=== PATIENT | female | born 1985 | race Caucasian/White ===

== ENCOUNTER 2017-11-12 10:02 | Inpatient (IN) | payer OTHER ==
[2017-11-12] MEDS ORDERED: FENTAnyl 50 MCG/ML VIAL ×2 (12:21→13:42)
[2017-11-12] MEDS ORDERED: PROVENTIL HFA 6.7GM INHALER (12:28)
[2017-11-12] MEDS: SOD CHLORIDE 0.9% 1,000 ML IV ×3 (12:30→23:31)
[2017-11-12] MEDS: CEFAZOLIN 2 GM/50 ML (PMX) 50 ML IVPB ×2 (12:31→18:33)
[2017-11-12] MEDS ORDERED: ROPIVACAINE 0.5 % 30 ML VIAL (12:34)
[2017-11-12] MEDS ORDERED: CEFAZOLIN 1 GM INJ (12:46)
[2017-11-12] MEDS ORDERED: SUGAMMADEX SODIUM 200 MG/2 ML VIAL IV (12:46)
[2017-11-12] MEDS ORDERED: ROCURONIUM 50 MG INJ (12:46)
[2017-11-12] MEDS ORDERED: LIDOCAINE 100 MG SYRINGE (12:46)
[2017-11-12] MEDS ORDERED: SUCCINYLCHOLINE CHLORIDE 100 MG/5 ML SYG IV (12:46)
[2017-11-12] MEDS ORDERED: PROPOFOL 20 ML (12:46)
[2017-11-12] MEDS: POLYMYXIN/BACITRACIN 1L IRRIG (13:05)
[2017-11-12] MEDS: BUPIVACAINE 0.25% (MPF) 30 ML INJ (13:27)
[2017-11-12] MEDS ORDERED: MEPERIDINE 25 MG INJ IV (14:00)
[2017-11-12] MEDS ORDERED: DIPHENHYDRAMINE 50 MG INJ IV (14:00)
[2017-11-12] MEDS ORDERED: LABETALOL HCL 20MG INJ IV (14:00)
[2017-11-12] MEDS ORDERED: IBUPROFEN 600 MG TAB PO (14:00)
[2017-11-12] MEDS ORDERED: ALBUTEROL 0.083% (NEB) 2.5 MG/3 ML AMP HHN (14:00)
[2017-11-12] MEDS ORDERED: FENTAnyl 50 MCG/ML VIAL IV (14:00)
[2017-11-12] MEDS ORDERED: HYDROmorphONE (0.2 MG/ML) 10ML SYG IV ×2 (14:00)
[2017-11-12] MEDS: FENTAnyl 50 MCG/ML VIAL IV (14:02)
[2017-11-12] MEDS: ONDANSETRON 4 MG INJ IV ×2 (14:03→20:38)
[2017-11-12] MEDS: HYDROmorphONE (0.2 MG/ML) 10ML SYG IV (14:18)
[2017-11-12 14:20] LABS: ADD MAN DIFF? NO
[2017-11-12 14:22] LABS: BASOPHIL # 0.1 10^3/ul (0.0-0.1); BASOPHILS % 0.3 % (0.0-2.0); EOSINOPHILS # 0.1 10^3/ul (0.0-0.5); EOSINOPHILS % 0.4 % (0.0-7.0); HEMATOCRIT 42.6 % (37.0-47.0); LYMPHOCYTES # 4.3 10^3/ul (0.8-2.9); MEAN CORPUSCULAR HEMOGLOBIN 29.1 pg (29.0-33.0); MEAN CORPUSCULAR HGB CONC 32.9 g/dl (32.0-37.0); MEAN CORPUSCULAR VOLUME 88.6 fl (82.0-101.0); MEAN PLATELET VOLUME 10.7 fl (7.4-10.4); MONOCYTE # 0.8 10^3/ul (0.3-0.9); MONOCYTES % 4.8 % (0.0-11.0); NEUTROPHIL # 11.7 10^3/ul (1.6-7.5); NEUTROPHILS % 69.1 % (39.0-77.0); PLATELET COUNT 248 10^3/UL (140-415); RED BLOOD COUNT 4.81 10^6/ul (4.20-5.40); RED CELL DISTRIBUTION WIDTH 13.5 % (11.5-14.5)
[2017-11-12 14:28] LABS: HOLD TRANSMISSIONS 1
[2017-11-12 14:39] LABS: ALANINE AMINOTRANSFERASE 36 IU/L (13-69); ALBUMIN 3.8 g/dl (3.3-4.9); ALBUMIN/GLOBULIN RATIO 1.15; ALKALINE PHOSPHATASE 65 IU/L (42-121); ANION GAP 15 (8-16); ASPARTATE AMINO TRANSFERASE 24 IU/L (15-46); BILIRUBIN,INDIRECT 0.2 mg/dl (0-1.1); BILIRUBIN,TOTAL 0.2 mg/dl (0.2-1.3); CARBON DIOXIDE 26 mmol/L (21-31); CHLORIDE 106 mmol/L (97-110); GLUCOSE 190 mg/dl (70-220); TOTAL PROTEIN 7.1 g/dl (6.1-8.1)
[2017-11-12 14:40] LABS: BLOOD UREA NITROGEN 14 mg/dl (7-20); CALCIUM 8.4 mg/dl (8.4-10.2); POTASSIUM 3.7 mmol/L (3.5-5.1); SODIUM 143 mmol/L (135-144)
[2017-11-12] MEDS ORDERED: GLUCAGON 1 MG INJ IM (15:00)
[2017-11-12] MEDS ORDERED: DEXTROSE 50% 50 ML SYRINGE IV ×2 (15:00)
[2017-11-12] MEDS ORDERED: GLUCOSE GEL 15 GRAM TUBE PO ×2 (15:00)
[2017-11-12] MEDS ORDERED: GLUCOSE GEL 15 GRAM TUBE BUCCAL (15:00)
[2017-11-12 15:12] LABS: HEMOGLOBIN A1C 6.5 % (0-5.9)
[2017-11-12] MEDS: INSULIN ASPART [NOVOLOG] 3 ML PEN SC ×2 (17:55→20:35)
[2017-11-12] MEDS: metFORMIN 500 MG TAB PO (17:55)
[2017-11-12] MEDS: METOCLOPRAMIDE 10 MG INJ IV (18:38)
[2017-11-12] MEDS: HYDROmorphONE 0.5 MG/0.5 ML SYG IV (20:38)
[2017-11-13] MEDS: HYDROCODONE/APAP (5/325) TAB PO ×2 (00:10→07:51)
[2017-11-13] MEDS: SOD CHLORIDE 0.9% 1,000 ML IV ×3 (00:10→20:00)
[2017-11-13] MEDS: ACCU-CHEK XX (02:30)
[2017-11-13] MEDS: CEFAZOLIN 2 GM/50 ML (PMX) 50 ML IVPB ×2 (02:30→10:29)
[2017-11-13 05:34] LABS: ADD MAN DIFF? NO
[2017-11-13 05:42] LABS: WHITE BLOOD COUNT 15.5 10^3/ul (4.8-10.8)
[2017-11-13 05:42] LABS: BASOPHILS % 0.3 % (0.0-2.0); EOSINOPHILS % 0.1 % (0.0-7.0); HEMATOCRIT 40.4 % (37.0-47.0); HEMOGLOBIN 13.2 g/dl (12.0-16.0); LYMPHOCYTES # 2.4 10^3/ul (0.8-2.9); LYMPHOCYTES % 15.8 % (15.0-51.0); MEAN CORPUSCULAR HEMOGLOBIN 28.7 pg (29.0-33.0); MEAN CORPUSCULAR HGB CONC 32.7 g/dl (32.0-37.0); MEAN CORPUSCULAR VOLUME 87.8 fl (82.0-101.0); MONOCYTE # 1.1 10^3/ul (0.3-0.9); MONOCYTES % 6.9 % (0.0-11.0); NEUTROPHIL # 11.8 10^3/ul (1.6-7.5); NEUTROPHILS % 76.6 % (39.0-77.0); PLATELET COUNT 233 10^3/UL (140-415); RED CELL DISTRIBUTION WIDTH 13.6 % (11.5-14.5)
[2017-11-13 06:09] LABS: ALANINE AMINOTRANSFERASE 26 IU/L (13-69); ALBUMIN 3.7 g/dl (3.3-4.9); ALBUMIN/GLOBULIN RATIO 1.15; ALKALINE PHOSPHATASE 59 IU/L (42-121); ANION GAP 16 (8-16); ASPARTATE AMINO TRANSFERASE 20 IU/L (15-46); BILIRUBIN,INDIRECT 1.2 mg/dl (0-1.1); BILIRUBIN,TOTAL 1.2 mg/dl (0.2-1.3); BLOOD UREA NITROGEN 12 mg/dl (7-20); CALCIUM 8.7 mg/dl (8.4-10.2); CARBON DIOXIDE 24 mmol/L (21-31); CHLORIDE 105 mmol/L (97-110); CREATININE 0.51 mg/dl (0.44-1.00); GLUCOSE 149 mg/dl (70-220); POTASSIUM 3.6 mmol/L (3.5-5.1); SODIUM 141 mmol/L (135-144); TOTAL PROTEIN 6.9 g/dl (6.1-8.1)
[2017-11-13] MEDS: ONDANSETRON 4 MG INJ IV (07:53)
[2017-11-13] MEDS: EMPAGLIFLOZIN 10 MG TABLET PO (09:22)
[2017-11-13] MEDS: LISINOPRIL 20 MG TAB PO (09:23)
[2017-11-13] MEDS: LINAGLIPTIN 5 MG TABLET PO (09:23)
[2017-11-13] MEDS: INSULIN ASPART [NOVOLOG] 3 ML PEN SC ×5 (09:27→20:36)
[2017-11-13] MEDS: metFORMIN 500 MG TAB PO ×3 (09:31→18:31)
[2017-11-13] MEDS: HYDROCODONE/APAP (10/325) TAB PO ×2 (14:17→14:19)
[2017-11-13 16:03] LABS: CHOL/HDL RATIO 3.3 RATIO; HDL CHOLESTEROL 40 mg/dl (34-82); LDL CHOLESTEROL,CALCULATED 59 mg/dl; TRIGLYCERIDES 176 mg/dl (0-149)
[2017-11-13 16:03] LABS: CHOLESTEROL 134 mg/dl (100-200)
[2017-11-13] MEDS: SOD CHLORIDE 0.9% 100 ML (18:29)
[2017-11-13] MEDS: IOHEXOL 100 ML (18:30)
[2017-11-13 18:47] LABS: CREATINE KINASE 61 IU/L (23-200)
[2017-11-13 18:55] LABS: CK INDEX 0.4
[2017-11-13 18:57] LABS: CK-MB < 0.22 ng/ml (0.0-2.4); TROPONIN-I < 0.012 ng/ml (0.00-0.12)
[2017-11-13] MEDS ORDERED: RIVAROXABAN 15 MG TABLET PO (19:30)
[2017-11-13 19:40] LABS: AADO2 Arterial 82.1 mmHg (7.0-24.0); Allen Test ACCEPTAB; Arterial Base Excess -0.7 mmol/L (-3.0-3); Arterial Blood Gas Oxygen Sat 96.1 mmHG (95.0-98.0); Arterial COHb 0.9 % (0.0-3.0); Arterial Fraction of Oxyhgb 94.9 % (93.0-99.0); Arterial HCO3 22.8 mmol/L (22.0-26.0); Arterial MetHb 0.3 % (0.0-1.5); Arterial Total Hemglobin 14.8 g/dl (12.0-18.0); Arterial pCO2 34.2 mmhg (35-45); MODE NASAL CANNULA; Site Right Radial
[2017-11-13] MEDS: APIXABAN 5 MG TABLET PO (20:24)
[2017-11-13] MEDS: METOPROLOL 25 MG TAB PO (20:24)
[2017-11-13 20:26] LABS: INR 1.22; PROTIME 15.6 Sec (11.9-14.9); PT RATIO 1.2
[2017-11-14 01:28] LABS: TROPONIN-I < 0.012 ng/ml (0.00-0.12)
[2017-11-14] MEDS: ACCU-CHEK XX (02:00)
[2017-11-14] MEDS: SOD CHLORIDE 0.9% 1,000 ML IV ×2 (05:37→17:40)
[2017-11-14 07:27] LABS: ADD MAN DIFF? NO
[2017-11-14 07:28] LABS: BASOPHIL # 0.1 10^3/ul (0.0-0.1); BASOPHILS % 0.3 % (0.0-2.0); EOSINOPHILS % 0.1 % (0.0-7.0); HEMATOCRIT 42.4 % (37.0-47.0); HEMOGLOBIN 13.7 g/dl (12.0-16.0); LYMPHOCYTES # 2.5 10^3/ul (0.8-2.9); LYMPHOCYTES % 13.2 % (15.0-51.0); MEAN CORPUSCULAR HEMOGLOBIN 28.9 pg (29.0-33.0); MEAN CORPUSCULAR HGB CONC 32.3 g/dl (32.0-37.0); MEAN CORPUSCULAR VOLUME 89.5 fl (82.0-101.0); MEAN PLATELET VOLUME 10.9 fl (7.4-10.4); MONOCYTE # 1.2 10^3/ul (0.3-0.9); MONOCYTES % 6.3 % (0.0-11.0); NEUTROPHIL # 15.1 10^3/ul (1.6-7.5); NEUTROPHILS % 79.6 % (39.0-77.0); PLATELET COUNT 238 10^3/UL (140-415); RED BLOOD COUNT 4.74 10^6/ul (4.20-5.40); RED CELL DISTRIBUTION WIDTH 13.9 % (11.5-14.5)
[2017-11-14 07:54] LABS: ANION GAP 21 (8-16); BLOOD UREA NITROGEN 10 mg/dl (7-20); CARBON DIOXIDE 18 mmol/L (21-31); CHLORIDE 108 mmol/L (97-110); CREATININE 0.59 mg/dl (0.44-1.00); GLUCOSE 116 mg/dl (70-220); SODIUM 143 mmol/L (135-144)
[2017-11-14 08:05] LABS: TROPONIN-I < 0.012 ng/ml (0.00-0.12)
[2017-11-14] MEDS: LINAGLIPTIN 5 MG TABLET PO (08:39)
[2017-11-14] MEDS: EMPAGLIFLOZIN 10 MG TABLET PO (08:39)
[2017-11-14] MEDS: APIXABAN 5 MG TABLET PO ×2 (08:39→21:41)
[2017-11-14] MEDS: metFORMIN 500 MG TAB PO ×2 (08:40→17:39)
[2017-11-14] MEDS: LISINOPRIL 20 MG TAB PO (08:40)
[2017-11-14] MEDS: METOPROLOL 25 MG TAB PO ×2 (08:41→21:41)
[2017-11-14] MEDS: INSULIN ASPART [NOVOLOG] 3 ML PEN SC ×4 (08:43→21:00)
[2017-11-14 13:07] LABS: TROPONIN-I < 0.012 ng/ml (0.00-0.12)
[2017-11-15] MEDS: ACCU-CHEK XX (02:00)
[2017-11-15 07:42] LABS: ADD MAN DIFF? NO
[2017-11-15 07:49] LABS: BASOPHIL # 0.1 10^3/ul (0.0-0.1); BASOPHILS % 0.4 % (0.0-2.0); EOSINOPHILS # 0.2 10^3/ul (0.0-0.5); EOSINOPHILS % 1.4 % (0.0-7.0); HEMATOCRIT 41.9 % (37.0-47.0); HEMOGLOBIN 13.6 g/dl (12.0-16.0); LYMPHOCYTES # 2.9 10^3/ul (0.8-2.9); MEAN CORPUSCULAR HEMOGLOBIN 28.9 pg (29.0-33.0); MEAN CORPUSCULAR HGB CONC 32.5 g/dl (32.0-37.0); MEAN PLATELET VOLUME 11.1 fl (7.4-10.4); MONOCYTE # 1.2 10^3/ul (0.3-0.9); MONOCYTES % 7.4 % (0.0-11.0); NEUTROPHIL # 11.5 10^3/ul (1.6-7.5); NEUTROPHILS % 72.4 % (39.0-77.0); PLATELET COUNT 261 10^3/UL (140-415); RED BLOOD COUNT 4.71 10^6/ul (4.20-5.40); RED CELL DISTRIBUTION WIDTH 13.8 % (11.5-14.5)
[2017-11-15 07:49] LABS: WHITE BLOOD COUNT 15.9 10^3/ul (4.8-10.8)
[2017-11-15] MEDS: INSULIN ASPART [NOVOLOG] 3 ML PEN SC ×4 (08:00→21:00)
[2017-11-15 08:34] LABS: ANION GAP 21 (8-16); BLOOD UREA NITROGEN 14 mg/dl (7-20); CALCIUM 8.9 mg/dl (8.4-10.2); CARBON DIOXIDE 18 mmol/L (21-31); CHLORIDE 107 mmol/L (97-110); CREATININE 0.59 mg/dl (0.44-1.00); GLUCOSE 117 mg/dl (70-220); POTASSIUM 3.9 mmol/L (3.5-5.1); SODIUM 142 mmol/L (135-144)
[2017-11-15] MEDS: LINAGLIPTIN 5 MG TABLET PO (09:05)
[2017-11-15] MEDS: EMPAGLIFLOZIN 10 MG TABLET PO (09:06)
[2017-11-15] MEDS: LISINOPRIL 20 MG TAB PO (09:07)
[2017-11-15] MEDS: METOPROLOL 25 MG TAB PO ×2 (09:07→21:09)
[2017-11-15] MEDS: APIXABAN 5 MG TABLET PO ×2 (09:07→21:09)
[2017-11-15] MEDS: SOD CHLORIDE 0.9% 1,000 ML IV (09:08)
[2017-11-15] MEDS: metFORMIN 500 MG TAB PO ×2 (09:15→17:23)
[2017-11-15] MEDS ORDERED: DIPHENOXYLATE/ATROPINE TAB PO (13:30)
[2017-11-16] MEDS: SOD CHLORIDE 0.9% 1,000 ML IV ×2 (01:51→17:35)
[2017-11-16] MEDS: ACCU-CHEK XX (02:00)
[2017-11-16] MEDS: INSULIN ASPART [NOVOLOG] 3 ML PEN SC ×4 (08:00→20:51)
[2017-11-16 08:31] LABS: ADD MAN DIFF? NO
[2017-11-16] MEDS: EMPAGLIFLOZIN 10 MG TABLET PO (08:32)
[2017-11-16] MEDS: LISINOPRIL 20 MG TAB PO (08:32)
[2017-11-16] MEDS: LINAGLIPTIN 5 MG TABLET PO (08:33)
[2017-11-16] MEDS: METOPROLOL 25 MG TAB PO ×2 (08:33→20:51)
[2017-11-16] MEDS: metFORMIN 500 MG TAB PO ×2 (08:33→17:34)
[2017-11-16] MEDS: APIXABAN 5 MG TABLET PO ×2 (08:33→20:50)
[2017-11-16 08:47] LABS: WHITE BLOOD COUNT 12.9 10^3/ul (4.8-10.8)
[2017-11-16 08:47] LABS: BASOPHIL # 0.1 10^3/ul (0.0-0.1); BASOPHILS % 0.5 % (0.0-2.0); EOSINOPHILS # 0.3 10^3/ul (0.0-0.5); EOSINOPHILS % 2.6 % (0.0-7.0); HEMATOCRIT 43.1 % (37.0-47.0); HEMOGLOBIN 14.1 g/dl (12.0-16.0); LYMPHOCYTES # 2.5 10^3/ul (0.8-2.9); LYMPHOCYTES % 19.5 % (15.0-51.0); MEAN CORPUSCULAR HEMOGLOBIN 29.1 pg (29.0-33.0); MEAN CORPUSCULAR HGB CONC 32.7 g/dl (32.0-37.0); MEAN PLATELET VOLUME 10.9 fl (7.4-10.4); MONOCYTE # 0.8 10^3/ul (0.3-0.9); MONOCYTES % 6.4 % (0.0-11.0); NEUTROPHIL # 9.1 10^3/ul (1.6-7.5); NEUTROPHILS % 70.8 % (39.0-77.0); PLATELET COUNT 292 10^3/UL (140-415); RED BLOOD COUNT 4.84 10^6/ul (4.20-5.40); RED CELL DISTRIBUTION WIDTH 13.6 % (11.5-14.5)
[2017-11-16 09:07] LABS: INR 1.42; PROTIME 17.6 Sec (11.9-14.9); PT RATIO 1.4
[2017-11-16 09:08] LABS: PARTIAL THROMBOPLASTIN TIME 43.9 Sec (25.0-35.0)
[2017-11-16] MEDS: metroNIDAZOLE 500 MG TAB PO ×2 (17:34→23:20)
[2017-11-17] MEDS: ACCU-CHEK XX (01:44)
[2017-11-17] MEDS: metroNIDAZOLE 500 MG TAB PO ×3 (05:40→17:39)
[2017-11-17 06:59] LABS: ADD MAN DIFF? NO
[2017-11-17 07:01] LABS: WHITE BLOOD COUNT 12.2 10^3/ul (4.8-10.8)
[2017-11-17 07:01] LABS: BASOPHIL # 0.1 10^3/ul (0.0-0.1); BASOPHILS % 0.5 % (0.0-2.0); EOSINOPHILS # 0.4 10^3/ul (0.0-0.5); EOSINOPHILS % 2.9 % (0.0-7.0); HEMATOCRIT 44.4 % (37.0-47.0); HEMOGLOBIN 14.5 g/dl (12.0-16.0); LYMPHOCYTES # 2.2 10^3/ul (0.8-2.9); LYMPHOCYTES % 17.8 % (15.0-51.0); MEAN CORPUSCULAR HEMOGLOBIN 28.5 pg (29.0-33.0); MEAN CORPUSCULAR HGB CONC 32.7 g/dl (32.0-37.0); MEAN CORPUSCULAR VOLUME 87.4 fl (82.0-101.0); MEAN PLATELET VOLUME 10.5 fl (7.4-10.4); MONOCYTE # 0.8 10^3/ul (0.3-0.9); MONOCYTES % 6.5 % (0.0-11.0); NEUTROPHIL # 8.8 10^3/ul (1.6-7.5); NEUTROPHILS % 71.9 % (39.0-77.0); PLATELET COUNT 365 10^3/UL (140-415); RED BLOOD COUNT 5.08 10^6/ul (4.20-5.40); RED CELL DISTRIBUTION WIDTH 13.3 % (11.5-14.5)
[2017-11-17] MEDS: INSULIN ASPART [NOVOLOG] 3 ML PEN SC ×4 (08:00→20:43)
[2017-11-17] MEDS: LISINOPRIL 20 MG TAB PO (08:45)
[2017-11-17] MEDS: METOPROLOL 25 MG TAB PO (08:46)
[2017-11-17] MEDS: LINAGLIPTIN 5 MG TABLET PO (08:46)
[2017-11-17] MEDS: APIXABAN 5 MG TABLET PO ×2 (08:46→20:43)
[2017-11-17] MEDS: EMPAGLIFLOZIN 10 MG TABLET PO (08:47)
[2017-11-17] MEDS: metFORMIN 500 MG TAB PO ×2 (08:53→17:39)
[2017-11-17] MEDS: SOD CHLORIDE 0.9% 1,000 ML IV (11:11)
[2017-11-17] MEDS: METOPROLOL 50 MG TAB PO (20:43)
[2017-11-18] MEDS: metroNIDAZOLE 500 MG TAB PO ×3 (01:16→11:41)
[2017-11-18] MEDS: ACCU-CHEK XX (02:00)
[2017-11-18] MEDS: SOD CHLORIDE 0.9% 1,000 ML IV ×2 (03:51→20:31)
[2017-11-18] MEDS: ONDANSETRON 4 MG INJ IV (06:31)
[2017-11-18 07:08] LABS: ADD MAN DIFF? NO
[2017-11-18 07:13] LABS: WHITE BLOOD COUNT 13.3 10^3/ul (4.8-10.8)
[2017-11-18 07:13] LABS: BASOPHIL # 0.1 10^3/ul (0.0-0.1); BASOPHILS % 0.5 % (0.0-2.0); EOSINOPHILS # 0.3 10^3/ul (0.0-0.5); EOSINOPHILS % 2.6 % (0.0-7.0); HEMATOCRIT 45.8 % (37.0-47.0); HEMOGLOBIN 15.1 g/dl (12.0-16.0); LYMPHOCYTES # 2.2 10^3/ul (0.8-2.9); LYMPHOCYTES % 16.4 % (15.0-51.0); MEAN CORPUSCULAR HEMOGLOBIN 29.2 pg (29.0-33.0); MEAN CORPUSCULAR VOLUME 88.4 fl (82.0-101.0); MEAN PLATELET VOLUME 10.3 fl (7.4-10.4); MONOCYTE # 0.9 10^3/ul (0.3-0.9); MONOCYTES % 6.4 % (0.0-11.0); NEUTROPHIL # 9.8 10^3/ul (1.6-7.5); NEUTROPHILS % 73.7 % (39.0-77.0); PLATELET COUNT 385 10^3/UL (140-415); RED BLOOD COUNT 5.18 10^6/ul (4.20-5.40); RED CELL DISTRIBUTION WIDTH 13.3 % (11.5-14.5)
[2017-11-18 07:42] LABS: ANION GAP 26 (8-16); BLOOD UREA NITROGEN 15 mg/dl (7-20); CALCIUM 9.3 mg/dl (8.4-10.2); CARBON DIOXIDE 14 mmol/L (21-31); CHLORIDE 107 mmol/L (97-110); GLUCOSE 131 mg/dl (70-220); POTASSIUM 4.1 mmol/L (3.5-5.1); SODIUM 143 mmol/L (135-144)
[2017-11-18] MEDS: INSULIN ASPART [NOVOLOG] 3 ML PEN SC ×4 (08:00→21:00)
[2017-11-18] MEDS: LISINOPRIL 10 MG TAB PO (08:44)
[2017-11-18] MEDS: METOPROLOL 50 MG TAB PO ×2 (08:44→21:48)
[2017-11-18] MEDS: EMPAGLIFLOZIN 10 MG TABLET PO (08:45)
[2017-11-18] MEDS: LINAGLIPTIN 5 MG TABLET PO (08:45)
[2017-11-18] MEDS: APIXABAN 5 MG TABLET PO ×2 (08:45→21:49)
[2017-11-18] MEDS: metFORMIN 500 MG TAB PO ×2 (08:54→17:24)
[2017-11-18] MEDS: Metronidazole 500 MG in NS 100 ML IVPB ×2 (17:23→23:41)
[2017-11-18] MEDS: VANCOMYCIN HCL 250 MG/5ML POSYG PO ×2 (17:24→23:41)
[2017-11-19] MEDS: ACCU-CHEK XX (02:00)
[2017-11-19] MEDS: VANCOMYCIN HCL 250 MG/5ML POSYG PO ×3 (06:35→17:52)
[2017-11-19] MEDS: Metronidazole 500 MG in NS 100 ML IVPB ×3 (06:35→21:03)
[2017-11-19] MEDS: INSULIN ASPART [NOVOLOG] 3 ML PEN SC ×4 (08:00→20:54)
[2017-11-19] MEDS: EMPAGLIFLOZIN 10 MG TABLET PO (08:33)
[2017-11-19] MEDS: LISINOPRIL 10 MG TAB PO (08:33)
[2017-11-19] MEDS: metFORMIN 500 MG TAB PO ×2 (08:33→17:53)
[2017-11-19] MEDS: LINAGLIPTIN 5 MG TABLET PO (08:34)
[2017-11-19] MEDS: APIXABAN 5 MG TABLET PO ×2 (08:34→20:54)
[2017-11-19] MEDS: METOPROLOL 50 MG TAB PO ×2 (08:34→20:54)
[2017-11-19 10:01] LABS: ADD MAN DIFF? NO
[2017-11-19 10:07] LABS: WHITE BLOOD COUNT 14.5 10^3/ul (4.8-10.8)
[2017-11-19 10:07] LABS: BASOPHIL # 0.1 10^3/ul (0.0-0.1); BASOPHILS % 0.6 % (0.0-2.0); EOSINOPHILS # 0.2 10^3/ul (0.0-0.5); EOSINOPHILS % 1.7 % (0.0-7.0); HEMATOCRIT 46.7 % (37.0-47.0); HEMOGLOBIN 15.1 g/dl (12.0-16.0); LYMPHOCYTES # 2.1 10^3/ul (0.8-2.9); LYMPHOCYTES % 14.7 % (15.0-51.0); MEAN CORPUSCULAR HEMOGLOBIN 28.5 pg (29.0-33.0); MEAN CORPUSCULAR HGB CONC 32.3 g/dl (32.0-37.0); MEAN CORPUSCULAR VOLUME 88.3 fl (82.0-101.0); MEAN PLATELET VOLUME 10.4 fl (7.4-10.4); MONOCYTE # 0.8 10^3/ul (0.3-0.9); MONOCYTES % 5.5 % (0.0-11.0); NEUTROPHIL # 11.2 10^3/ul (1.6-7.5); NEUTROPHILS % 77.1 % (39.0-77.0); PLATELET COUNT 377 10^3/UL (140-415); RED BLOOD COUNT 5.29 10^6/ul (4.20-5.40); RED CELL DISTRIBUTION WIDTH 13.3 % (11.5-14.5)
[2017-11-19 10:23] LABS: ALANINE AMINOTRANSFERASE 39 IU/L (13-69); ALBUMIN 4.4 g/dl (3.3-4.9); ALKALINE PHOSPHATASE 85 IU/L (42-121); ANION GAP 27 (8-16); ASPARTATE AMINO TRANSFERASE 35 IU/L (15-46); BILIRUBIN,INDIRECT 0.3 mg/dl (0-1.1); BILIRUBIN,TOTAL 0.3 mg/dl (0.2-1.3); BLOOD UREA NITROGEN 14 mg/dl (7-20); CALCIUM 9.1 mg/dl (8.4-10.2); CARBON DIOXIDE 12 mmol/L (21-31); CHLORIDE 107 mmol/L (97-110); CREATININE 0.65 mg/dl (0.44-1.00); GLUCOSE 116 mg/dl (70-220); POTASSIUM 4.1 mmol/L (3.5-5.1); SODIUM 142 mmol/L (135-144); TOTAL PROTEIN 8.4 g/dl (6.1-8.1)
[2017-11-19] MEDS: SOD CHLORIDE 0.9% 1,000 ML IV (13:11)
[2017-11-19] MEDS: ONDANSETRON 4 MG INJ IV (18:40)
[2017-11-20] MEDS: VANCOMYCIN HCL 250 MG/5ML POSYG PO ×5 (00:32→23:13)
[2017-11-20] MEDS: ONDANSETRON 4 MG INJ IV ×4 (00:32→21:13)
[2017-11-20] MEDS: ACCU-CHEK XX (01:52)
[2017-11-20] MEDS: SOD CHLORIDE 0.9% 1,000 ML IV ×2 (05:08→22:31)
[2017-11-20] MEDS: Metronidazole 500 MG in NS 100 ML IVPB ×3 (05:09→21:14)
[2017-11-20 07:43] LABS: ADD MAN DIFF? NO
[2017-11-20] MEDS: INSULIN ASPART [NOVOLOG] 3 ML PEN SC ×4 (07:47→21:00)
[2017-11-20 07:48] LABS: BASOPHIL # 0.1 10^3/ul (0.0-0.1); BASOPHILS % 0.5 % (0.0-2.0); EOSINOPHILS # 0.2 10^3/ul (0.0-0.5); EOSINOPHILS % 1.2 % (0.0-7.0); HEMATOCRIT 46.6 % (37.0-47.0); HEMOGLOBIN 15.1 g/dl (12.0-16.0); LYMPHOCYTES # 2.7 10^3/ul (0.8-2.9); LYMPHOCYTES % 15.1 % (15.0-51.0); MEAN CORPUSCULAR HEMOGLOBIN 28.9 pg (29.0-33.0); MEAN CORPUSCULAR HGB CONC 32.4 g/dl (32.0-37.0); MEAN CORPUSCULAR VOLUME 89.1 fl (82.0-101.0); MEAN PLATELET VOLUME 10.5 fl (7.4-10.4); MONOCYTE # 1.1 10^3/ul (0.3-0.9); MONOCYTES % 6.4 % (0.0-11.0); NEUTROPHIL # 13.4 10^3/ul (1.6-7.5); NEUTROPHILS % 76.3 % (39.0-77.0); PLATELET COUNT 381 10^3/UL (140-415); RED BLOOD COUNT 5.23 10^6/ul (4.20-5.40); RED CELL DISTRIBUTION WIDTH 13.2 % (11.5-14.5)
[2017-11-20 07:48] LABS: WHITE BLOOD COUNT 17.6 10^3/ul (4.8-10.8)
[2017-11-20 08:05] LABS: ANION GAP 27 (8-16); BLOOD UREA NITROGEN 14 mg/dl (7-20); CALCIUM 8.9 mg/dl (8.4-10.2); CHLORIDE 107 mmol/L (97-110); CREATININE 0.64 mg/dl (0.44-1.00); GLUCOSE 120 mg/dl (70-220); SODIUM 139 mmol/L (135-144)
[2017-11-20 08:10] LABS: CARBON DIOXIDE 9 mmol/L (21-31)
[2017-11-20] MEDS: metFORMIN 500 MG TAB PO ×2 (08:31→17:26)
[2017-11-20] MEDS: LINAGLIPTIN 5 MG TABLET PO (08:32)
[2017-11-20] MEDS: EMPAGLIFLOZIN 10 MG TABLET PO (08:32)
[2017-11-20] MEDS: LISINOPRIL 10 MG TAB PO (08:33)
[2017-11-20] MEDS: APIXABAN 5 MG TABLET PO (08:33)
[2017-11-20] MEDS: METOPROLOL 50 MG TAB PO ×2 (08:34→21:14)
[2017-11-20] MEDS: SOD CHLORIDE 0.9% 500 ML IV (18:30)
[2017-11-21] MEDS: ACCU-CHEK XX (02:00)
[2017-11-21] MEDS: Metronidazole 500 MG in NS 100 ML IVPB ×2 (05:18→15:04)
[2017-11-21] MEDS: VANCOMYCIN HCL 250 MG/5ML POSYG PO ×2 (05:18→11:56)
[2017-11-21] MEDS: INSULIN ASPART [NOVOLOG] 3 ML PEN SC ×4 (07:37→21:00)
[2017-11-21 08:47] LABS: ADD MAN DIFF? NO
[2017-11-21] MEDS: metFORMIN 500 MG TAB PO ×2 (08:49→17:27)
[2017-11-21] MEDS: APIXABAN 5 MG TABLET PO ×2 (08:50→22:27)
[2017-11-21] MEDS: LINAGLIPTIN 5 MG TABLET PO (08:50)
[2017-11-21] MEDS: EMPAGLIFLOZIN 10 MG TABLET PO (08:50)
[2017-11-21] MEDS: LISINOPRIL 10 MG TAB PO (08:51)
[2017-11-21] MEDS: METOPROLOL 50 MG TAB PO ×2 (08:52→22:36)
[2017-11-21 08:54] LABS: BASOPHIL # 0.1 10^3/ul (0.0-0.1); BASOPHILS % 0.5 % (0.0-2.0); EOSINOPHILS # 0.3 10^3/ul (0.0-0.5); EOSINOPHILS % 1.7 % (0.0-7.0); HEMATOCRIT 44.3 % (37.0-47.0); HEMOGLOBIN 14.8 g/dl (12.0-16.0); LYMPHOCYTES # 2.4 10^3/ul (0.8-2.9); LYMPHOCYTES % 15.3 % (15.0-51.0); MEAN CORPUSCULAR HEMOGLOBIN 29.2 pg (29.0-33.0); MEAN CORPUSCULAR HGB CONC 33.4 g/dl (32.0-37.0); MEAN CORPUSCULAR VOLUME 87.5 fl (82.0-101.0); MEAN PLATELET VOLUME 10.8 fl (7.4-10.4); MONOCYTE # 1.1 10^3/ul (0.3-0.9); MONOCYTES % 7.3 % (0.0-11.0); NEUTROPHIL # 11.6 10^3/ul (1.6-7.5); NEUTROPHILS % 74.8 % (39.0-77.0); PLATELET COUNT 376 10^3/UL (140-415); RED BLOOD COUNT 5.06 10^6/ul (4.20-5.40); RED CELL DISTRIBUTION WIDTH 13.4 % (11.5-14.5)
[2017-11-21 08:54] LABS: WHITE BLOOD COUNT 15.5 10^3/ul (4.8-10.8)
[2017-11-21 09:25] LABS: ANION GAP 21 (8-16); BLOOD UREA NITROGEN 13 mg/dl (7-20); CALCIUM 9.3 mg/dl (8.4-10.2); CARBON DIOXIDE 15 mmol/L (21-31); CHLORIDE 107 mmol/L (97-110); CREATININE 0.62 mg/dl (0.44-1.00); GLUCOSE 113 mg/dl (70-220); POTASSIUM 3.6 mmol/L (3.5-5.1); SODIUM 139 mmol/L (135-144)
[2017-11-21] MEDS: SOD CHLORIDE 0.9% 1,000 ML IV ×2 (15:05→22:41)
[2017-11-21] MEDS: HYDROmorphONE 0.5 MG/0.5 ML SYG IV (20:05)
[2017-11-21] MEDS: ONDANSETRON 4 MG INJ IV (20:05)
[2017-11-21] MEDS: metroNIDAZOLE 500 MG TAB PO (22:35)
[2017-11-22] MEDS: ACCU-CHEK XX (02:00)
[2017-11-22] MEDS: HYDROmorphONE 0.5 MG/0.5 ML SYG IV ×2 (02:24→20:17)
[2017-11-22] MEDS: metroNIDAZOLE 500 MG TAB PO ×3 (06:46→22:01)
[2017-11-22] MEDS: metFORMIN 500 MG TAB PO ×2 (07:18→07:47)
[2017-11-22] MEDS: INSULIN ASPART [NOVOLOG] 3 ML PEN SC ×4 (08:00→20:21)
[2017-11-22] MEDS: APIXABAN 5 MG TABLET PO ×2 (09:18→20:17)
[2017-11-22] MEDS: METOPROLOL 50 MG TAB PO ×2 (09:19→21:00)
[2017-11-22] MEDS: LINAGLIPTIN 5 MG TABLET PO (09:19)
[2017-11-22] MEDS: LISINOPRIL 10 MG TAB PO (09:19)
[2017-11-22] MEDS: EMPAGLIFLOZIN 10 MG TABLET PO (10:22)
[2017-11-22 12:40] LABS: ADD MAN DIFF? NO
[2017-11-22 12:45] LABS: WHITE BLOOD COUNT 13.9 10^3/ul (4.8-10.8)
[2017-11-22 12:45] LABS: BASOPHIL # 0.1 10^3/ul (0.0-0.1); BASOPHILS % 0.6 % (0.0-2.0); EOSINOPHILS # 0.3 10^3/ul (0.0-0.5); EOSINOPHILS % 1.9 % (0.0-7.0); HEMATOCRIT 41.9 % (37.0-47.0); HEMOGLOBIN 13.8 g/dl (12.0-16.0); LYMPHOCYTES # 2.5 10^3/ul (0.8-2.9); LYMPHOCYTES % 17.8 % (15.0-51.0); MEAN CORPUSCULAR HEMOGLOBIN 28.8 pg (29.0-33.0); MEAN CORPUSCULAR HGB CONC 32.9 g/dl (32.0-37.0); MEAN CORPUSCULAR VOLUME 87.5 fl (82.0-101.0); MEAN PLATELET VOLUME 10.9 fl (7.4-10.4); MONOCYTES % 6.9 % (0.0-11.0); NEUTROPHILS % 72.4 % (39.0-77.0); PLATELET COUNT 336 10^3/UL (140-415); RED BLOOD COUNT 4.79 10^6/ul (4.20-5.40); RED CELL DISTRIBUTION WIDTH 13.6 % (11.5-14.5)
[2017-11-23] MEDS: SOD CHLORIDE 0.9% 1,000 ML IV ×2 (00:31→05:48)
[2017-11-23] MEDS: ACCU-CHEK XX (02:00)
[2017-11-23] MEDS: HYDROmorphONE 0.5 MG/0.5 ML SYG IV ×2 (02:50→18:12)
[2017-11-23] MEDS: metroNIDAZOLE 500 MG TAB PO ×3 (05:48→21:34)
[2017-11-23 07:28] LABS: ADD MAN DIFF? NO
[2017-11-23 07:29] LABS: BASOPHIL # 0.1 10^3/ul (0.0-0.1); BASOPHILS % 0.6 % (0.0-2.0); EOSINOPHILS # 0.3 10^3/ul (0.0-0.5); EOSINOPHILS % 2.6 % (0.0-7.0); HEMATOCRIT 40.8 % (37.0-47.0); HEMOGLOBIN 13.5 g/dl (12.0-16.0); LYMPHOCYTES # 2.8 10^3/ul (0.8-2.9); LYMPHOCYTES % 25.1 % (15.0-51.0); MEAN CORPUSCULAR HEMOGLOBIN 29.1 pg (29.0-33.0); MEAN CORPUSCULAR HGB CONC 33.1 g/dl (32.0-37.0); MEAN CORPUSCULAR VOLUME 87.9 fl (82.0-101.0); MEAN PLATELET VOLUME 11.1 fl (7.4-10.4); MONOCYTE # 0.9 10^3/ul (0.3-0.9); MONOCYTES % 7.7 % (0.0-11.0); NEUTROPHIL # 7.2 10^3/ul (1.6-7.5); NEUTROPHILS % 63.7 % (39.0-77.0); PLATELET COUNT 324 10^3/UL (140-415); RED BLOOD COUNT 4.64 10^6/ul (4.20-5.40); RED CELL DISTRIBUTION WIDTH 13.6 % (11.5-14.5)
[2017-11-23 07:29] LABS: WHITE BLOOD COUNT 11.3 10^3/ul (4.8-10.8)
[2017-11-23] MEDS: INSULIN ASPART [NOVOLOG] 3 ML PEN SC ×4 (08:00→21:00)
[2017-11-23] MEDS: metFORMIN 500 MG TAB PO ×2 (08:00→08:08)
[2017-11-23 08:04] LABS: ANION GAP 20 (8-16); BLOOD UREA NITROGEN 10 mg/dl (7-20); CALCIUM 8.5 mg/dl (8.4-10.2); CARBON DIOXIDE 17 mmol/L (21-31); CHLORIDE 105 mmol/L (97-110); CREATININE 0.51 mg/dl (0.44-1.00); GLUCOSE 93 mg/dl (70-220); POTASSIUM 3.3 mmol/L (3.5-5.1); SODIUM 139 mmol/L (135-144)
[2017-11-23] MEDS: APIXABAN 5 MG TABLET PO ×2 (09:02→21:35)
[2017-11-23] MEDS: METOPROLOL 50 MG TAB PO ×2 (09:02→21:35)
[2017-11-23] MEDS: LISINOPRIL 10 MG TAB PO (09:03)
[2017-11-23] MEDS: LINAGLIPTIN 5 MG TABLET PO (09:03)
[2017-11-23] MEDS: EMPAGLIFLOZIN 10 MG TABLET PO (09:04)
[2017-11-23] MEDS: IODIXANOL LOCM 100 ML BTL (12:52)
[2017-11-23] MEDS: SOD CHLORIDE 0.9% 100 ML (12:53)
[2017-11-23] MEDS: PIPER-TAZO 3.375 GM IV (PMX) 100 ML IVPB ×2 (17:52→23:38)
[2017-11-24] MEDS: ACCU-CHEK XX (01:01)
[2017-11-24] MEDS: metroNIDAZOLE 500 MG TAB PO ×3 (05:18→21:47)
[2017-11-24] MEDS: PIPER-TAZO 3.375 GM IV (PMX) 100 ML IVPB ×3 (05:37→21:47)
[2017-11-24] MEDS: SOD CHLORIDE 0.9% 1,000 ML IV (05:37)
[2017-11-24] MEDS: metFORMIN 500 MG TAB PO ×2 (08:00→17:26)
[2017-11-24] MEDS: INSULIN ASPART [NOVOLOG] 3 ML PEN SC ×4 (08:00→19:57)
[2017-11-24] MEDS: EMPAGLIFLOZIN 10 MG TABLET PO (08:18)
[2017-11-24] MEDS: LINAGLIPTIN 5 MG TABLET PO (08:18)
[2017-11-24] MEDS: LISINOPRIL 10 MG TAB PO (09:00)
[2017-11-24] MEDS: METOPROLOL 50 MG TAB PO ×2 (09:00→20:08)
[2017-11-24 09:10] LABS: ADD MAN DIFF? NO
[2017-11-24 09:21] LABS: BASOPHIL # 0.1 10^3/ul (0.0-0.1); BASOPHILS % 0.5 % (0.0-2.0); EOSINOPHILS # 0.2 10^3/ul (0.0-0.5); EOSINOPHILS % 2.3 % (0.0-7.0); HEMATOCRIT 40.4 % (37.0-47.0); HEMOGLOBIN 13.5 g/dl (12.0-16.0); LYMPHOCYTES # 2.2 10^3/ul (0.8-2.9); LYMPHOCYTES % 22.6 % (15.0-51.0); MEAN CORPUSCULAR HEMOGLOBIN 29.1 pg (29.0-33.0); MEAN CORPUSCULAR HGB CONC 33.4 g/dl (32.0-37.0); MEAN CORPUSCULAR VOLUME 87.1 fl (82.0-101.0); MEAN PLATELET VOLUME 11.8 fl (7.4-10.4); MONOCYTE # 0.7 10^3/ul (0.3-0.9); MONOCYTES % 7.7 % (0.0-11.0); NEUTROPHIL # 6.4 10^3/ul (1.6-7.5); NEUTROPHILS % 66.6 % (39.0-77.0); PLATELET COUNT 294 10^3/UL (140-415); RED BLOOD COUNT 4.64 10^6/ul (4.20-5.40); RED CELL DISTRIBUTION WIDTH 13.5 % (11.5-14.5)
[2017-11-24 09:21] LABS: WHITE BLOOD COUNT 9.7 10^3/ul (4.8-10.8)
[2017-11-24 09:39] LABS: ANION GAP 17 (8-16); BLOOD UREA NITROGEN 8 mg/dl (7-20); CALCIUM 8.7 mg/dl (8.4-10.2); CARBON DIOXIDE 21 mmol/L (21-31); CHLORIDE 105 mmol/L (97-110); CREATININE 0.53 mg/dl (0.44-1.00); GLUCOSE 99 mg/dl (70-220); POTASSIUM 3.3 mmol/L (3.5-5.1); PROTIME 17.4 Sec (11.9-14.9); PT RATIO 1.4; SODIUM 140 mmol/L (135-144)
[2017-11-24 09:40] LABS: PARTIAL THROMBOPLASTIN TIME 38.8 Sec (25.0-35.0)
[2017-11-24] MEDS: HYDROmorphONE 0.5 MG/0.5 ML SYG IV (21:48)
[2017-11-25] MEDS: ACCU-CHEK XX (02:00)
[2017-11-25] MEDS: SOD CHLORIDE 0.9% 1,000 ML IV ×3 (03:45→22:11)
[2017-11-25] MEDS: PIPER-TAZO 3.375 GM IV (PMX) 100 ML IVPB ×3 (06:00→22:11)
[2017-11-25] MEDS: metroNIDAZOLE 500 MG TAB PO ×3 (06:00→20:47)
[2017-11-25] MEDS: INSULIN ASPART [NOVOLOG] 3 ML PEN SC ×4 (08:00→20:47)
[2017-11-25] MEDS: METOPROLOL 50 MG TAB PO ×2 (08:44→20:47)
[2017-11-25 08:45] LABS: ADD MAN DIFF? NO
[2017-11-25] MEDS: metFORMIN 500 MG TAB PO ×2 (08:45→17:12)
[2017-11-25] MEDS: LINAGLIPTIN 5 MG TABLET PO (08:45)
[2017-11-25] MEDS: EMPAGLIFLOZIN 10 MG TABLET PO (08:45)
[2017-11-25 08:50] LABS: BASOPHIL # 0.1 10^3/ul (0.0-0.1); BASOPHILS % 0.6 % (0.0-2.0); EOSINOPHILS # 0.2 10^3/ul (0.0-0.5); EOSINOPHILS % 2.6 % (0.0-7.0); HEMATOCRIT 39.1 % (37.0-47.0); HEMOGLOBIN 12.9 g/dl (12.0-16.0); LYMPHOCYTES # 2.1 10^3/ul (0.8-2.9); LYMPHOCYTES % 24.8 % (15.0-51.0); MEAN CORPUSCULAR HEMOGLOBIN 28.7 pg (29.0-33.0); MEAN CORPUSCULAR VOLUME 86.9 fl (82.0-101.0); MONOCYTE # 0.7 10^3/ul (0.3-0.9); MONOCYTES % 7.9 % (0.0-11.0); NEUTROPHIL # 5.5 10^3/ul (1.6-7.5); NEUTROPHILS % 63.7 % (39.0-77.0); PLATELET COUNT 337 10^3/UL (140-415); RED CELL DISTRIBUTION WIDTH 13.5 % (11.5-14.5)
[2017-11-25 08:50] LABS: WHITE BLOOD COUNT 8.6 10^3/ul (4.8-10.8)
[2017-11-25 09:22] LABS: ANION GAP 15 (8-16); BLOOD UREA NITROGEN 7 mg/dl (7-20); CALCIUM 8.6 mg/dl (8.4-10.2); CARBON DIOXIDE 21 mmol/L (21-31); CHLORIDE 106 mmol/L (97-110); CREATININE 0.45 mg/dl (0.44-1.00); GLUCOSE 101 mg/dl (70-220); POTASSIUM 3.3 mmol/L (3.5-5.1); SODIUM 139 mmol/L (135-144)
[2017-11-25] MEDS: POTASSIUM CHLORIDE 100 ML IVPB ×2 (13:21→14:03)
[2017-11-25] MEDS: HYDROmorphONE 0.5 MG/0.5 ML SYG IV (22:11)
[2017-11-26] MEDS: ACCU-CHEK XX (02:00)
[2017-11-26] MEDS: metroNIDAZOLE 500 MG TAB PO ×3 (05:17→21:48)
[2017-11-26] MEDS: PIPER-TAZO 3.375 GM IV (PMX) 100 ML IVPB ×3 (05:17→21:47)
[2017-11-26] MEDS: metFORMIN 500 MG TAB PO ×2 (08:00→18:05)
[2017-11-26] MEDS: INSULIN ASPART [NOVOLOG] 3 ML PEN SC ×4 (08:00→21:00)
[2017-11-26] MEDS: EMPAGLIFLOZIN 10 MG TABLET PO (08:32)
[2017-11-26] MEDS: LINAGLIPTIN 5 MG TABLET PO (08:32)
[2017-11-26] MEDS: METOPROLOL 50 MG TAB PO ×2 (08:32→21:49)
[2017-11-26 09:02] LABS: ADD MAN DIFF? NO
[2017-11-26 09:12] LABS: BASOPHIL # 0.1 10^3/ul (0.0-0.1); BASOPHILS % 0.8 % (0.0-2.0); EOSINOPHILS # 0.2 10^3/ul (0.0-0.5); EOSINOPHILS % 2.4 % (0.0-7.0); HEMATOCRIT 38.7 % (37.0-47.0); HEMOGLOBIN 12.7 g/dl (12.0-16.0); LYMPHOCYTES # 2.3 10^3/ul (0.8-2.9); LYMPHOCYTES % 29.4 % (15.0-51.0); MEAN CORPUSCULAR HEMOGLOBIN 28.9 pg (29.0-33.0); MEAN CORPUSCULAR HGB CONC 32.8 g/dl (32.0-37.0); MEAN PLATELET VOLUME 11.5 fl (7.4-10.4); MONOCYTE # 0.6 10^3/ul (0.3-0.9); NEUTROPHIL # 4.8 10^3/ul (1.6-7.5); NEUTROPHILS % 59.9 % (39.0-77.0); NUCLEATED RED BLOOD CELLS% 0.3 /100WBC (0.0-0.0); PLATELET COUNT 345 10^3/UL (140-415); RED CELL DISTRIBUTION WIDTH 13.9 % (11.5-14.5)
[2017-11-26 09:27] LABS: ANION GAP 14 (8-16); BLOOD UREA NITROGEN 9 mg/dl (7-20); CALCIUM 8.7 mg/dl (8.4-10.2); CARBON DIOXIDE 26 mmol/L (21-31); CHLORIDE 105 mmol/L (97-110); CREATININE 0.49 mg/dl (0.44-1.00); GLUCOSE 103 mg/dl (70-220); POTASSIUM 3.4 mmol/L (3.5-5.1); SODIUM 142 mmol/L (135-144)
[2017-11-26] MEDS: SOD CHLORIDE 0.9% 1,000 ML IV (11:51)
[2017-11-26] MEDS: MIDAZOLAM 1 MG/ML 2 ML INJ (14:14)
[2017-11-26] MEDS: LIDOCAINE 2% (SDV) 5 ML INJ (14:14)
[2017-11-26] MEDS: PROPOFOL 40 ML (14:14)
[2017-11-26] MEDS: FENTAnyl 50 MCG/ML VIAL (14:15)
[2017-11-26] MEDS: LIDOCAINE 1% (MDV) 10 ML INJ (14:33)
[2017-11-27] MEDS: ACCU-CHEK XX (02:00)
[2017-11-27] MEDS: PIPER-TAZO 3.375 GM IV (PMX) 100 ML IVPB ×3 (05:45→21:29)
[2017-11-27] MEDS: SOD CHLORIDE 0.9% 1,000 ML IV ×2 (05:45→21:11)
[2017-11-27] MEDS: metroNIDAZOLE 500 MG TAB PO ×3 (05:45→21:29)
[2017-11-27] MEDS: INSULIN ASPART [NOVOLOG] 3 ML PEN SC ×4 (08:00→20:20)
[2017-11-27] MEDS: METOPROLOL 50 MG TAB PO ×2 (08:45→21:00)
[2017-11-27] MEDS: metFORMIN 500 MG TAB PO ×2 (08:45→17:29)
[2017-11-27] MEDS: EMPAGLIFLOZIN 10 MG TABLET PO (08:45)
[2017-11-27] MEDS: LINAGLIPTIN 5 MG TABLET PO (08:57)
[2017-11-27] MEDS: APIXABAN 5 MG TABLET PO ×2 (09:00→20:18)
[2017-11-28] MEDS: ACCU-CHEK XX (02:00)
[2017-11-28] MEDS: metroNIDAZOLE 500 MG TAB PO ×2 (05:32→14:00)
[2017-11-28] MEDS: PIPER-TAZO 3.375 GM IV (PMX) 100 ML IVPB ×2 (05:32→14:00)
[2017-11-28] MEDS: INSULIN ASPART [NOVOLOG] 3 ML PEN SC ×2 (08:00→12:00)
[2017-11-28] MEDS: METOPROLOL 50 MG TAB PO (08:16)
[2017-11-28] MEDS: APIXABAN 5 MG TABLET PO (08:24)
[2017-11-28] MEDS: EMPAGLIFLOZIN 10 MG TABLET PO (08:24)
[2017-11-28] MEDS: LINAGLIPTIN 5 MG TABLET PO (08:25)
[2017-11-28] MEDS: metFORMIN 500 MG TAB PO (08:28)
[2017-11-28 14:25] LABS: ADD MAN DIFF? NO
[2017-11-28 14:28] LABS: BASOPHIL # 0.1 10^3/ul (0.0-0.1); BASOPHILS % 0.9 % (0.0-2.0); EOSINOPHILS # 0.2 10^3/ul (0.0-0.5); EOSINOPHILS % 1.9 % (0.0-7.0); HEMATOCRIT 40.1 % (37.0-47.0); LYMPHOCYTES # 2.5 10^3/ul (0.8-2.9); LYMPHOCYTES % 30.8 % (15.0-51.0); MEAN CORPUSCULAR HEMOGLOBIN 28.7 pg (29.0-33.0); MEAN CORPUSCULAR HGB CONC 32.4 g/dl (32.0-37.0); MEAN CORPUSCULAR VOLUME 88.5 fl (82.0-101.0); MONOCYTE # 0.7 10^3/ul (0.3-0.9); MONOCYTES % 8.2 % (0.0-11.0); NEUTROPHIL # 4.6 10^3/ul (1.6-7.5); NEUTROPHILS % 57.9 % (39.0-77.0); PLATELET COUNT 346 10^3/UL (140-415); RED BLOOD COUNT 4.53 10^6/ul (4.20-5.40); RED CELL DISTRIBUTION WIDTH 13.8 % (11.5-14.5)
[2017-11-28 14:44] LABS: ANION GAP 14 (8-16); BLOOD UREA NITROGEN 6 mg/dl (7-20); CALCIUM 8.9 mg/dl (8.4-10.2); CARBON DIOXIDE 26 mmol/L (21-31); CHLORIDE 104 mmol/L (97-110); CREATININE 0.54 mg/dl (0.44-1.00); GLUCOSE 124 mg/dl (70-220); POTASSIUM 3.4 mmol/L (3.5-5.1); SODIUM 141 mmol/L (135-144)
== END 2017-11-28 15:00 | disposition home or self-care (01) | DRG 335 ==
LOC: SDS 10:02 → MS4 11-17 14:23 → SDS 13:30 → REC 13:31 → MS1 15:50 → MS4 11-13 18:03
PROVIDERS: Surgery
PROC: 0WUF0JZ Supplement Abdominal Wall with Synthetic Substitute, Open Approach (ICD-10-PCS; principal; 2017-11-12 12:20)
PROC: 0DNW0ZZ Release Peritoneum, Open Approach (ICD-10-PCS; 2017-11-12 12:20)
PROC: 0W9G30Z Drainage of Peritoneal Cavity with Drainage Device, Percutaneous Approach (ICD-10-PCS; 2017-11-12 12:20)
DX: K43.0 Incisional hernia with obstruction, without gangrene (principal); I26.99 Other pulmonary embolism without acute cor pulmonale; Z68.42 Body mass index [BMI] 45.0-49.9, adult; A04.72 Enterocolitis due to Clostridium difficile, not specified as recurrent; K56.50 Intestinal adhesions [bands], unspecified as to partial versus complete obstruction; R18.8 Other ascites; D72.829 Elevated white blood cell count, unspecified; E66.01 Morbid (severe) obesity due to excess calories; E11.9 Type 2 diabetes mellitus without complications; I10 Essential (primary) hypertension; R00.0 Tachycardia, unspecified; Z90.49 Acquired absence of other specified parts of digestive tract; Z71.3 Dietary counseling and surveillance; Z79.84 Long term (current) use of oral hypoglycemic drugs
CPT/HCPCS: 36600; 71045; 71275; 74177; 75989; 77012; 80048; 80053; 80061; 82550; 82553; 82803; 82962; 83036; 84443; 84484; 84703; 85025; 85610; 85730; 87070; 87075; 93005; 93306; 93970; 97161

== ENCOUNTER 2018-07-25 21:57 | Emergency (ER) | payer OTHER ==
[2018-07-26 01:57] LABS: URINE PH (Dip) POC 5.5 (5.0-8.5)
[2018-07-26 01:57] LABS: URINE BLOOD (Dip) POC 2+ (NEGATIVE); URINE KETONES (Dip) POC 1+ (NEGATIVE); URINE LEUKOCYTE EST (Dip) POC Negative (NEGATIVE); URINE NITRITE (Dip) POC Negative (NEGATIVE); URINE TOTAL PROTEIN POC Negative (NEGATIVE)
== END 2018-07-26 03:02 | disposition home or self-care (01) ==
LOC: E/R 21:57
DX: K43.9 Ventral hernia without obstruction or gangrene (principal); E11.9 Type 2 diabetes mellitus without complications; I10 Essential (primary) hypertension; Z79.01 Long term (current) use of anticoagulants; Z79.84 Long term (current) use of oral hypoglycemic drugs
CPT/HCPCS: 74176; 81003; 81025; 99284-25